=== PATIENT | female | born 1955 | race Caucasian/White ===

== ENCOUNTER 2017-04-10 20:04 | Emergency (ER) | payer MEDICAID ==
[~2017-04-10] VITALS: Ht 167.6 cm; Wt 60.8 kg
[2017-04-10 22:18] VITALS: BP 120/70
== END 2017-04-11 00:30 | disposition left against medical advice (07) ==
LOC: ED 20:04
DX: K59.00 Constipation, unspecified (principal); Z85.830 Personal history of malignant neoplasm of bone; Z79.899 Other long term (current) drug therapy; Z85.72 Personal history of non-Hodgkin lymphomas